=== PATIENT | female | born 1975 | race Two or more races ===

== ENCOUNTER 2018-09-03 12:15 | Outpatient (CLI) | payer OTHER | END 2018-09-03 15:46 | disposition home or self-care (01) | LOC: LAB 12:15 | DX: E78.4 Other hyperlipidemia (principal); N30.00 Acute cystitis without hematuria; R97.8 Other abnormal tumor markers; N95.8 Other specified menopausal and perimenopausal disorders; I10 Essential (primary) hypertension; E03.8 Other specified hypothyroidism ==

== ENCOUNTER 2018-09-20 11:52 | Outpatient (CLI) | payer OTHER | END 2018-09-20 12:06 | disposition home or self-care (01) | LOC: MAMO-SONO 11:52 | DX: N60.11 Diffuse cystic mastopathy of right breast (principal); N60.12 Diffuse cystic mastopathy of left breast; Z12.31 Encounter for screening mammogram for malignant neoplasm of breast ==

== ENCOUNTER 2018-11-08 08:49 | Emergency (ER) | payer OTHER ==
[~2018-11-08] VITALS: Ht 165.1 cm; Wt 57.2 kg
== END 2018-11-08 11:07 | disposition home or self-care (01) ==
LOC: ER 08:49
DX: M54.89 Other dorsalgia (principal)

== ENCOUNTER 2018-12-23 08:08 | Emergency (ER) | payer OTHER ==
[~2018-12-23] VITALS: Ht 165.1 cm; Wt 56.7 kg
[2018-12-23] MEDS ORDERED: VITAMIN C500 M1 PO (08:19)
== END 2018-12-23 10:08 | disposition home or self-care (01) ==
LOC: ER 08:08
DX: S01.551A Open bite of lip, initial encounter (principal); W54.0XXA Bitten by dog, initial encounter; Y93.89 Activity, other specified; Y92.89 Other specified places as the place of occurrence of the external cause; Y99.8 Other external cause status

== ENCOUNTER → 2019-04-26 | Emergency (ER) | payer OTHER ==
[~2019-04-26] VITALS: Ht 165.1 cm; Wt 56.7 kg
[~2019-04-26] MED LIST: VITAMIN C500 M1 PO
== END | disposition left against medical advice (07) ==
LOC: ER 21:30
DX: R10.2 Pelvic and perineal pain (principal)

== ENCOUNTER 2021-03-15 14:27 | Outpatient (CLI) | payer OTHER | END 2021-03-15 14:36 | disposition home or self-care (01) | LOC: SONOGRAMA 14:27 | DX: D25.0 Submucous leiomyoma of uterus (principal) ==

== ENCOUNTER → 2021-04-17 | Emergency (ER) | payer OTHER ==
[~2021-04-17] VITALS: Ht 160 cm; Wt 56.2 kg
[~2021-04-17] MED LIST changes: +KETO10TA2 PO; +NORFLEX100MG PO
== END | disposition home or self-care (01) ==
LOC: ER 11:55
DX: M54.2 Cervicalgia (principal); M25.511 Pain in right shoulder

== ENCOUNTER 2021-08-08 10:25 | Outpatient (CLI) | payer OTHER | END 2021-08-08 10:26 | disposition home or self-care (01) | LOC: SONOGRAMA 10:25 | PROVIDERS: ATTEND Internal Medicine | DX: M54.30 Sciatica, unspecified side (principal) ==

== ENCOUNTER → 2021-10-09 | Emergency (ER) | payer OTHER ==
[~2021-10-09] VITALS: Ht 165.1 cm; Wt 56.2 kg
== END | disposition left against medical advice (07) ==
LOC: ER 20:27
DX: N94.6 Dysmenorrhea, unspecified (principal)

== ENCOUNTER 2022-04-28 13:59 | Outpatient (CLI) | payer OTHER | END 2022-04-28 14:10 | disposition home or self-care (01) | LOC: RAD 13:59 | PROVIDERS: ATTEND Internal Medicine | DX: Z01.818 Encounter for other preprocedural examination (principal) ==

== ENCOUNTER 2022-11-21 12:14 | Outpatient (CLI) | payer OTHER | END 2022-11-21 12:26 | disposition home or self-care (01) | LOC: TOM 12:14 | DX: R10.12 Left upper quadrant pain (principal); R10.32 Left lower quadrant pain; I11.9 Hypertensive heart disease without heart failure; N94.6 Dysmenorrhea, unspecified; D25.9 Leiomyoma of uterus, unspecified ==

== ENCOUNTER 2023-07-17 08:07 | Outpatient (CLI) | payer OTHER | END 2023-07-17 08:24 | disposition home or self-care (01) | LOC: MRI 08:07 | PROVIDERS: ATTEND Orthopaedic Surgery Sports Medicine | DX: M76.51 Patellar tendinitis, right knee (principal); M25.461 Effusion, right knee | CPT/HCPCS: 73718 ==

== ENCOUNTER 2024-09-12 10:41 | Outpatient (CLI) | payer OTHER | END 2024-09-12 10:49 | disposition home or self-care (01) | LOC: SONOGRAMA 10:41 | PROVIDERS: ATTEND Obstetrics & Gynecology Obstetrics | DX: R10.13 Epigastric pain (principal); R10.2 Pelvic and perineal pain; N94.19 Other specified dyspareunia; N85.00 Endometrial hyperplasia, unspecified ==

== ENCOUNTER 2024-09-12 11:31 | Outpatient (CLI) | payer OTHER | END 2024-09-12 11:33 | disposition home or self-care (01) | LOC: NUCLEAR 11:31 | PROVIDERS: ATTEND Obstetrics & Gynecology Obstetrics | DX: M81.0 Age-related osteoporosis without current pathological fracture (principal) ==